=== PATIENT | male | born 1975 | race Caucasian/White ===

== ENCOUNTER 2018-08-29 17:11 | Emergency (ER) | payer SELFPAY ==
[~2018-08-29] VITALS: Ht 172.7 cm; Wt 84.0 kg
[2018-08-29 17:17] VITALS: BP 165/112; PULSE 70; RESP 16; Ht 172.7 cm; Wt 84.0 kg
== END 2018-08-29 18:45 | disposition left against medical advice (07) ==
LOC: E/R 17:11
DX: Z53.21 Procedure and treatment not carried out due to patient leaving prior to being seen by health care provider (principal)